=== PATIENT | male | born 1990 | race African-American/Black ===

== ENCOUNTER 2018-04-25 23:00 | Emergency (ER) | payer OTHER ==
[~2018-04-25] VITALS: Ht 170.2 cm; Wt 81.7 kg
[2018-04-25 23:11] LABS: URINE BILIRUBIN NEGATIVE (Negative); URINE BLOOD NEGATIVE (Negative); URINE CLARITY CLEAR; URINE COLOR YELLOW; URINE GLUCOSE-RANDOM NEGATIVE (Negative); URINE KETONES TRACE (Negative); URINE LEUKOCYTES-REFLEX NEGATIVE (Negative); URINE NITRITE-REFLEX NEGATIVE (Negative); URINE PROTEIN TRACE (Negative); URINE SPECIFIC GRAVITY >= 1.030 (1.005-1.030)
[2018-04-25 23:18] LABS: ABSOLUTE BASOPHILS 0.1 thou/uL (0.0-0.2); ABSOLUTE EOSINOPHILS 0.9 thou/uL (0.0-0.7); ABSOLUTE LYMPHOCYTES 3.2 thou/uL (0.8-5.3); ABSOLUTE MONOCYTES 0.6 thou/uL (0.0-1.2); ABSOLUTE NEUTROPHILS 5.3 thou/uL (1.6-8.1); EOSINOPHILS 8.9 %; HEMATOCRIT 40.3 % (42.0-52.0); HEMOGLOBIN 13.5 gm/dL (14.0-18.0); LYMPHOCYTES 31.9 %; MCH 32.1 pg (26.0-34.0); MCHC 33.5 g/dL (28.0-37.0); MCV 95.7 fL (80.0-100.0); MONOCYTES 5.8 %; MPV 10.6 fl. (7.2-11.1); NUCLEATED RBCS 0 /100WBC; PLATELET COUNT* 150 thou/uL (150-400); POLYS 52.4 %; RBC 4.21 mil/uL (4.50-6.00); RDW-CV 13.4 % (10.5-14.5)
[2018-04-25] MEDS ORDERED: SPIRONOLACTONE100 M1 PO (23:18)
[2018-04-25 23:19] LABS: AMP/METHAMP Negative (Negative); BARBITURATES Negative (Negative); BENZODIAZEPINES Negative (Negative); COCAINE Negative (Negative); METHADONE Negative (Negative); OPIATES Negative (Negative); PCP Negative (Negative); THC POSITIVE (Negative)
[2018-04-25] MEDS ORDERED: ESTRACE2 M3 PO (23:19)
[2018-04-25 23:42] LABS: CALCIUM 9.2 mg/dL (8.5-10.1); CREATININE 1.3 mg/dL (0.6-1.3); POTASSIUM 3.3 mmol/L (3.5-5.1)
[2018-04-25 23:47] LABS: ALBUMIN 4.1 g/dL (3.4-5.0); SALICYLATE 4.2 mg/dL (2.8-20.0); TOTAL PROTEIN 7.9 g/dL (6.4-8.2)
[2018-04-25 23:49] LABS: ACETAMINOPHEN < 2 ug/mL (10-30); ALCOHOL < 10 mg/dL (<10)
[2018-04-26 03:32] VITALS: BP 111/72
== END 2018-04-26 03:46 | disposition home or self-care (01) ==
LOC: M.ERS 23:00
PROVIDERS: Emergency Medicine
DX: R45.851 Suicidal ideations (principal)